=== PATIENT | female | born 1955 | race Caucasian/White ===

== ENCOUNTER → 2020-01-28 | Outpatient (CLI) | payer BC ==
--- NOTE | 2020-01-28 11:27 | Diagnostic Imaging Report ---
INDICATION: Left hip pain AP and frog-leg views of left hip are obtained. There is no previous study for comparison. There is mild/moderate concentric narrowing of left hip joint with prominent lateral marginal spurring of the acetabular roof. No acute fracture or malalignment is identified. There is no abnormal lytic or sclerotic focus. IMPRESSION: Lateral marginal spurring at the hip joint which could result in femoral acetabular impingement. No acute abnormality is detected. Dictated by: Dictated on workstation # [id number]
== END ==
LOC: RAD FS 11:08
PROVIDERS: ATTEND Nurse Practitioner
DX: M25.552 Pain in left hip (principal)
CPT/HCPCS: 73502